=== PATIENT | male | born 1995 ===

== ENCOUNTER 2020-10-29 08:26 | Emergency (ER) | payer OTHER ==
--- NOTE | 2020-10-29 09:13 | EDM.PDOC ---
ED HPI GENERAL MEDICAL PROBLEM - General Stated Complaint: RIGHT MIDDLE FINGER BLACK Time Seen by Provider: 10/29/20 09:01 Source of Information: Reports: Patient - History of Present Illness INITIAL COMMENTS - FREE TEXT/NARRATIVE: Pt was using a slede hammer about 2 days ago, when his hit his right middle finger. He noted it became painful and black. He is here as it continues to be painful and he would like it checked out. It has been staying the same. Using it, touch, makes it worse. nothing make it better. Right Finger-Middle Pain Score (Numeric/FACES): 5 - Related Data Allergies Allergy/AdvReac Type Severity Reaction Status Date / Time No Known Allergies Allergy Verified 10/29/20 08:35 Home Meds: Home Meds . [No Known Home Meds] 10/29/20 [History] Past Medical History - Past Health History Medical/Surgical History: Denies Medical/Surgical History Social & Family History - Tobacco Use Tobacco Use Status *Q: Unknown Ever Used Tobacco - Caffeine Use Caffeine Use: Reports: Coffee, Soda - Recreational Drug Use Recreational Drug Use: No ED ROS GENERAL - Review of Systems Review Of Systems: Comprehensive ROS is negative, except as noted in HPI. ED EXAM, SKIN/RASH Exam: See Below Exam Limited By: No Limitations General Appearance: Alert, WD/WN, No Apparent Distress Eye Exam: Bilateral Eye: Normal Inspection Ears: Normal External Exam Throat/Mouth: Normal Voice, No Airway Compromise Head: Atraumatic, Normocephalic Neck: Normal Inspection, Supple Respiratory/Chest: No Respiratory Distress, No Accessory Muscle Use Cardiovascular: Normal Peripheral Pulses, Regular Rate, Rhythm GI/Abdominal: Soft, Non-Tender (Male) Exam: Deferred Rectal (Males) Exam: Deferred Back Exam: Normal Inspection, Full Range of Motion Extremities: Normal Inspection, Normal Range of Motion, Normal Capillary Refill Neurological: Alert, Oriented, Normal Cognition, Normal Gait, No Motor/Sensory Deficits Psychiatric: Normal Affect, Normal Mood Skin: Warm, Dry, Other (right middle finger with subungual hematoma under entire nail plate, tender to palpation. No significant erythema, warmth or induration) Lymphatic: No Adenopathy ED SKIN PROCEDURES - Additional/Other Procedure(s) Other (Free Text) Procedure(s): Electrocautery to relieve pressure from subungual hematoma. Discussed risks, benefits and alternatives. Pt agrees to procedure Electrocautery was used to create a hole in the nail plate allowing blood to escape relieving the pressure. Pt tolerated the procedure well. No complications Course - Vital Signs Last Recorded V/S: Last Vital Signs Temp 98.1 F 10/29/20 08:35 Pulse 61 10/29/20 08:35 Resp 14 10/29/20 08:35 BP 145/80 H 10/29/20 08:35 Pulse Ox 99 10/29/20 08:35 Departure - Departure Time of Disposition: 09:09 Disposition: Home, Self-Care 01 Condition: Good Clinical Impression: Subungual hematoma - Discharge Information *PRESCRIPTION DRUG MONITORING PROGRAM REVIEWED*: Not Applicable *COPY OF PRESCRIPTION DRUG MONITORING REPORT IN PATIENT MARC: Not Applicable Instructions: Subungual Hematoma, [id number] Additional Instructions: Keep the nail clean and covered for 2-3 days Monitor for signs of infection, notify the ER or your PCP if redness, warmth or increasing pain develop Sepsis Event Note (ED) - Evaluation Sepsis Screening Result: No Definite Risk - Focused Exam Vital Signs: Vital Signs Temp Pulse Resp BP Pulse Ox 10/29/20 08:35 98.1 F 61 14 145/80 H 99
== END 2020-10-29 09:16 | disposition home or self-care (01) ==
LOC: DL.ED 08:26
DX: S60.131A Contusion of right middle finger with damage to nail, initial encounter (principal); W23.0XXA Caught, crushed, jammed, or pinched between moving objects, initial encounter
CPT/HCPCS: 11740; 99282; 99283-25